=== PATIENT | male | born 1980 ===

== ENCOUNTER → 2022-12-25 09:41 | Outpatient (CLI) | payer OTHER, SELFPAY ==
--- NOTE | ~2022-12-25 | MR_ITS ---
MRI of the cervical spine Clinical History: Radiculopathy Technique: Axial T2-weighted and gradient images, and sagittal T1-weighted, T2-weighted, and STIR ca ges were acquired. Findings: There is mild reversal normal cervical lordosis. No fracture or subluxation. No suspicious bone marrow signal reality seen. At C2-C3, there is no disc bulge or herniation. No spinal canal stenosis, cord compression, or neural foraminal narrowing. At C3-C4, there is mild disc osteophyte complex. There is mild canal stenosis without tommy cord comp ression. There is bilateral neural foraminal narrowing, right worse than left. At C4-C5, there is mild disc osteophyte complex. There is mild canal stenosis without tommy cord comp ression. There is bilateral neural foraminal narrowing with mild facet arthropathy. At C5-C6, there is disc osteophyte complex with mild canal stenosis but no tommy cord compression. Th ere is bilateral neural foraminal narrowing, left worse than right. At C6-C7, there is disc osteophyte complex. There is mild central canal stenosis without tommy cord c ompression. There is bilateral neural foraminal narrowing, left worse than right. No abnormal signal seen in the spinal cord itself. Paravertebral soft tissues are unremarkable. Impression: Moderate to advanced degenerative spondylosis, as detailed above. Reviewed, dictated and finalized at [facility]. Impression: Moderate to advanced degenerative spondylosis, as detailed above.
== END ==
PROVIDERS: PCP Student in an Organized Health Care Education/Training Program; Visit Provider Student in an Organized Health Care Education/Training Program
DX: M47.22 Other spondylosis with radiculopathy, cervical region (principal)
CPT/HCPCS: 72141